=== PATIENT | female | born 1990 | race Caucasian/White ===

== ENCOUNTER → 2018-04-07 13:49 | Outpatient (CLI) | payer OTHER, SELFPAY ==
[2018-04-07 14:35] LABS: Add Manual Diff / Slide Review NO; Basophils Percent Auto 0.4 % (0-2); Eosinophils Percent Auto 0.6 % (2-4); Hematocrit 38.8 % (36-46); Hemoglobin 13.3 g/dL (12.0-16.0); Lymphocytes Percent Auto 16.2 % (25-40); Mean Corpuscular HGB Conc 34.2 % (30-36); Mean Corpuscular Hemoglobin 30.9 PG (26-34); Mean Corpuscular Volume 90.2 fL (80-100); Monocytes Percent Auto 6.2 % (3-14); Neutrophils Absolute Auto 10200 /uL (3000-5900); Neutrophils Percent Auto 76.6 % (50-75); Platelet Count 298 X10^3/uL (150-400); Red Cell Distribution Width 12.8 % (11.6-14.8); White Blood Cell Count 13.3 X10^3/uL (4.5-11.0)
[2018-04-07 15:22] LABS: Appearance Urine UA CLEAR; Bilirubin Urine UA NEGATIVE (NEGATIVE); Color Urine UA YELLOW; Glucose Urine UA NEGATIVE (Normal); Ketones Urine UA 2+ (NEGATIVE); Leukocyte Esterase Urine UA NEGATIVE (NEGATIVE); Nitrite Urine UA Negative (Negative); Occult Blood Urine UA NEGATIVE (Negative); Protein Urine UA NEGATIVE (Negative); Urobilinogen Urine UA 0.2 E.U./dL (0.2)
[2018-04-07 16:20] LABS: Hepatitis B Surface Antigen NEGATIVE s/c (NEGATIVE); Rubella Antibody IgG 4.1 IU/mL (>15)
[2018-04-07 16:30] LABS: HIV 1 and 2 Antibody NEGATIVE (NEGATIVE); Hep C Virus Ab w/Reflex Quant NEGATIVE s/c (NEGATIVE)
[2018-04-09 14:03] LABS: HSV 2 IGG AB < 0.90 index (< 0.90); HSV1IGG < 0.90 index (< 0.90)
[2018-04-14 12:24] LABS: Rapid Plasma Reagin NON-REACTIVE
== END ==
PROVIDERS: PCP Family Medicine Geriatric Medicine; Visit Provider Specialist
DX: Z34.01 Encounter for supervision of normal first pregnancy, first trimester (principal); Z3A.12 12 weeks gestation of pregnancy
CPT/HCPCS: 36415; 80055; 81003; 86695; 86696; 86703; 86787; 86803; 86850; 86900; 86901; 87077; 87086

== ENCOUNTER → 2018-06-09 12:04 | Outpatient (CLI) | payer OTHER, SELFPAY ==
--- NOTE | 2018-06-09 12:06 | DI.US.S_ITS ---
PROCEDURE: US OB >= 14 WEEKS FETUS INDICATIONS: 20 WEEK ANATOMICAL SURVEY OUTSIDE/PRIOR DATING DATA: Last menstrual period (LMP): 01/27/18. LMP-based estimated date of delivery (JOLANTA): 11/03/18. First dating scan (date and location): 04/07/18 Estimated date of delivery (JOLANTA) from first dating scan: 10/18/18. TECHNIQUE: Real-time scanning was performed of the fetus, with image documentation and biometric measurements. Endovaginal scanning: No COMPARISON: [facility], , OB >= 14 WEEKS FETUS, 04/07/2018, 12:42. FINDINGS: General: A single living intrauterine gestation is present. Presentation: Breech. Placenta: Placental position is anterior, without previa. Amniotic fluid index: 21.1 cm, normal range is 5-24 cm. heart rate: 147 beats per minute. Maternal cervical canal: 3.6 cm long. Normal lower limit is 2.5 cm. biometrics: Biparietal diameter: 20 weeks 2 days Head circumference: 20 weeks 6 days Abdominal circumference: 21 weeks 5 days Femur length: 20 weeks 0 days Estimated gestational age from initial scan: 21 weeks 2 days Composite gestational age from present scan: 20 weeks 5 days Estimated weight and percentile: 37 g; 27th percentile Measurement variability for biometric dating: +/- 7 days from 14 weeks to 15 weeks 6 days gestation, +/- 10 days from 16 weeks to 21 weeks 6 days gestation, +/- 2 weeks from 22 weeks to 27 weeks 6 days gestation, +/- 3 weeks for 28 weeks gestation or later. weight reference: 4500 g or EFW >90/95% is considered macrosomia or large for gestational age. EFW <10% is small for gestational age. EFW 5% or less is considered intra-uterine growth restriction. Anatomic survey: Neuro: Ventricles are non-dilated at less than 10 mm. Cisterna magna is normal at 3-11 mm. Cerebellum is normal in size and morphology. Nuchal skin fold: Normal at less than 6 mm between 14-21 weeks gestational age. Face: Nose and lips, facial profile are normal. Spine: No evidence for spina bifida. Heart: 4-chambered heart is present, with normal ventricular outflow tracts. Diaphragm: Diaphragm is intact. Stomach: Left-sided stomach is present. Kidneys: No hydronephrosis. Normal is less than 5 mm in 2nd trimester, less than 7 mm in 3rd trimester. Cord: 3-vessel cord has orthotopic insertion. Bladder: Normal in size. Extremities: All 4 extremities identified. IMPRESSION: 1. Normal interval growth. 2. Normal anatomic survey. Dictated by: Arnold SOARES Interpreted: Amauri Tinajero MD on 06/09/2018 at 13:48 Approved by: Rashad Carvajal M.D. on 06/10/2018 at 10:06
== END ==
PROVIDERS: PCP Family Medicine Geriatric Medicine; Visit Provider Specialist
DX: Z36.89 Encounter for other specified antenatal screening (principal); Z3A.20 20 weeks gestation of pregnancy
CPT/HCPCS: 76811

== ENCOUNTER → 2018-09-20 11:14 | Outpatient (CLI) | payer OTHER, SELFPAY ==
[2018-09-21 14:32] LABS: Strep Grp B PCR NEG for Grp B Strep
== END ==
PROVIDERS: PCP Family Medicine Geriatric Medicine
DX: Z34.03 Encounter for supervision of normal first pregnancy, third trimester (principal)
CPT/HCPCS: 87653

== ENCOUNTER 2018-10-21 07:53 | Observation (INO) | payer OTHER, SELFPAY ==
[2018-10-21 11:12] LABS: Appearance Urine UA CLEAR; Bilirubin Urine UA NEGATIVE (NEGATIVE); Color Urine UA YELLOW; Glucose Urine UA NEGATIVE (Negative); Ketones Urine UA TRACE (NEGATIVE); Leukocyte Esterase Urine UA NEGATIVE (NEGATIVE); Nitrite Urine UA NEGATIVE (Negative); Occult Blood Urine UA 1+ (Negative); Protein Urine UA NEGATIVE (Negative); Specific Gravity Urine UA 1.025 (1.000-1.035); Urobilinogen Urine UA 0.2 E.U./dL (0.2)
== END 2018-10-21 10:35 | disposition home or self-care (01) ==
PROVIDERS: Admitting Provider Obstetrics & Gynecology; PCP Family Medicine Geriatric Medicine; Visit Provider Obstetrics & Gynecology
DX: Z34.03 Encounter for supervision of normal first pregnancy, third trimester (principal); Z3A.40 40 weeks gestation of pregnancy
CPT/HCPCS: 59025; 81003; G0378; G0379

== ENCOUNTER 2018-10-22 03:57 | Inpatient (IN) | payer OTHER, SELFPAY ==
--- NOTE | 2018-10-22 05:44 | PM.OBPRVD ---
Events: Meconium Stained Fluid Delivery date: 10/22/18 Intrapartal events: Precipitous Labor < 3 hours Cervical ripening method: none Induction method: none Delivery monitor: external FHT and external uterine Route of delivery: (Precipitous) Episiotomy description: None L&D Laceration Description: Vaginal - 1st Degree Delivery repair: chromic Estimated blood loss (mL): 300 Anesthesia type: Local (For repair only) Complications: None Narrative: Patient presented to Labor and delivery at 1 cm dilated. She progressed quickly to complete dilation and had a precipitous delivery. At 5:06 a.m., a live female infant delivered spontaneously over an intact perineum. A nuchal cord x1 was reduced on the perineum. The remainder of the body was delivered without difficulty and was placed on mom's abdomen. The cord was double clamped and cut. Cord bloods were obtained. The placenta delivered intact with a 3 vessel cord at 5:12 a.m.. 10 mg of IM Pitocin were given. The fundus was massaged to firm. 10 cc of 1% lidocaine were injected. First-degree vaginal lacerations were repaired with 2 0 Chromic. A periurethral laceration was repaired with for 0 Chromic. Hemostasis was achieved. Estimated blood loss 300 cc. Apgars 9 at 1 min and 9 at 5 min. . Local analgesia only. Mom and infant stable to recovery. Plan for aftercare: To routine care
[2018-10-22 06:56] VITALS: BP 114/60
[2018-10-22] MEDS: DERMOPLAST SPRAY 20% 60 ML 1 SPRAY TOP (07:18)
[2018-10-22] MEDS: IBUPROFEN 600 MG TABLET PO ×2 (07:18→19:21)
[2018-10-22] MEDS: PRENATAL VIT,CALC/IRON/FOLIC 1 TABLET 1 TAB PO (08:34)
[2018-10-22] MEDS: DOCUSATE 250 MG CAPSULE PO (08:34)
[2018-10-22] MEDS: OXYCODONE/ACETAMINOPHEN 5/325 TABLET 1 TAB PO (08:34)
--- NOTE | 2018-10-22 10:37 | P.HPOB_ITS ---
OB HPI Date/Time Date of admission: 10/22/18 Date Patient Seen: 10/22/18 Time Patient Seen: 05:00 History of Present Condition Chief complaint: obs : 1 Para: 0 Estimated Date of Delivery: 10/18/18 Estimated Gestational Age (weeks): 40+4 Narrative: Sadie Parry is a 28 year old female 1 para 0 at 40 and 4 7th weeks gestation who presented in active labor. History of Present care: good care, initiated at week # (10), number of visits (12) and pounds weight gain (32) Dating criteria: LMP confirmed by 1st trimester US Ultrasounds: normal 1st trimester US and normal mid trimester US Obstetrical complications: none Medical complications: none Preadmission Labs Blood type: O (+) positive -: Antibody screen: negative, GBS status: negative, HBsAG: negative, HIV: negative, HSV 1: negative, HSV 2: negative and RPR/VDLR: negative -: Rubella: not immune and Varicella: immune HCT: 37.9 HCAB: negative PAP: Normal Urine: neg 1 hr GTT: 92 Prior (ies) History: N/A Evaluation Evaluation Baseline heart rate: 140 Variability: Moderate (11-25) monitor accelerations: Present monitor decelerations: Absent Contraction Frequency (minutes): 3 Uterine Contraction Intensity: Strong/Firm Category of Tracing: I Cervical dilation (cm): 10 Cervical effacement (%): 100 station: +3 Non-invasive Membranes Rupture Test: positive PFSH Medical History [place] teeth extracted (Acute) Social History Smoking Status: Never smoker Social History Smoking Status: Never smoker Meds Home Medications Medication Instructions Recorded Confirmed Type doxylamine succinate 25 mg tablet 25 mg PO BEDTIME PRN 04/07/18 04/07/18 History 1 tab PO DAILY 04/07/18 04/07/18 History vitamin,calcium,coagfwdp-mvty-acimx acid tablet pyridoxine (vitamin B6) 50 mg 50 mg PO DAILY 04/07/18 04/07/18 History capsule omeprazole 20 mg capsule,delayed 20 mg PO DAILY #30 cap 08/25/18 Rx release Allergies Allergy/AdvReac Type Severity Reaction Status Date / Time No Known Drug Allergies Allergy Unverified 04/07/18 14:03 Exam Vital Signs (past 8 hours): - 10/22/18 06:56 Blood Pressure 114/60 Narrative Exam Narrative: GENERALLY: PATIENT IS LYING IN BED, HOLDING INFANT LUNGS: CLEAR TO AUSCULTATION BILATERALLY CARDIOVASCULAR: REGULAR RATE AND RHYTHM EXTERNAL GENITALIA: UMBILICAL CORD PROTRUDING FROM THE VAGINA. EXTREMITIES: TRACE EDEMA, NEGATIVE HOMANS Assessment and Plan Assessment and Plan Assessment and Plan narrative: ASSESSMENT: 28-YEAR-OLD 1 PARA 0 AT 40 AND 4 7TH WEEKS GESTATION WITH PRECIPITOUS LABOR PLAN: EXPECTANT MANAGEMENT OF DELIVERY OF THE PLACENTA AND REPAIR OF VAGINAL LACERATION Time Spent with Patient Total time spent with greater than 50% in coordination of care (as documented) at patient's floor/unit and/or counseling patient:: Greater than 35 minutes
[2018-10-22 17:41] LABS: Urine N gonorrhoeae NOT DETECTED
[2018-10-22 17:49] LABS: Urine Chlamydia NOT DETECTED
[2018-10-22 19:21] VITALS: TEMP 37.4
[2018-10-23] MEDS: IBUPROFEN 600 MG TABLET PO ×2 (03:37→11:44)
[2018-10-23 05:08] LABS: Hematocrit 32.5 % (36-46); Hemoglobin 10.9 g/dL (12.0-16.0)
--- NOTE | 2018-10-23 08:23 | PM.OBDS.1 ---
Discharge Providers Date of admission: 10/22/18 03:57 Discharge Date: 10/23/18 Primary care physician: Violeta Cordoba MD Consults: 10/22/18 05:41 Consult to [employer] Operator Routine Comment: Discharge provider: Lisa Sweet MD Summary Date Patient Seen: 10/23/18 Time Patient Seen: 08:23 Procedures: Spontaneous vaginal delivery Precicipitous labor and delivery Vaginal laceration repair Hospital Course: Patient is a 28-year-old 1 para 1 who presented in active labor and progressed rapidly to complete dilation. She had a precipitous spontaneous vaginal delivery. She had first-degree vaginal lacerations that were repaired. Her post course was unremarkable. Peripartum Data Infant Delivery Method: Natural Vaginal Laceration description: Vaginal - 1st Degree Episiotomy description: None Procedures: Spontaneous vaginal delivery Vaginal laceration repair complications: none Status at Discharge Cognitive/behavioral status at discharge: oriented Functional status at discharge: independent ambulation Overall status at discharge: patient is progressing back to baseline Time Spent with Patient Total time spent providing and/or coordinating discharge services: Less than 30 minutes Objective Labs Result Diagrams: 10/23/18 04:48 Labs: Laboratory Results - last 24 hr 10/22/18 10/23/18 14:15 04:48 Hgb 10.9 L Hct 32.5 L Ur Chlamydia DNA (PCR) Not detected N gonorrhoeae DNA (PCR) Not detected Exam Vital Signs (past 8 hours): Generally: Patient is sitting up in bed, holding , no acute distress Fundus: Firm at U -2 Extremities: Trace edema, negative Homans Discharge Plan Discharge Plan Patient Disposition: Home Discharge comment: Call with fever, chills or bleeding vaginally more than a pad in an hour Ibuprofen 600mg every 6 hours as needed Discharge Med Rec/Prescriptions Prescriptions: Continued prenat.vits,dmitry,kbe-enec-iduzm [ Vitamin] tablet 1 tab PO DAILY RF: 0 Discontinued doxylamine succinate 25 mg tablet 25 mg PO BEDTIME PRNRF: 0 pyridoxine (vitamin B6) 50 mg capsule 50 mg PO DAILY RF: 0 omeprazole 20 mg capsule,delayed release(DR/EC) 20 mg PO DAILY Qty: 30 RF: 1 Follow up/Referrals: Noel Hitchcock MD [Physician] - 6 Weeks Provider Discharge Instructions Diet: Regular Activity: No intercourse Skin/Wound/Dressing Care Report to your healthcare provider any signs of infection, such as:: chills, fever, increased pain, unusual drainage and unusual redness Visit Report/Discharge Packet Instructions: DI for Labor and Delivery, Vaginal Discharge Data Primary Care Provider: Violeta Cordoba Attending Provider: Lisa Sweet Admit Date/Time: 10/22/18 03:57
[2018-10-23] MEDS: PRENATAL VIT,CALC/IRON/FOLIC 1 TABLET 1 TAB PO (09:45)
[2018-10-23] MEDS: DOCUSATE 250 MG CAPSULE PO (09:45)
[2018-10-23 10:28] VITALS: BP 112/76; PULSE 84; RESP 16; TEMP 36.9
[2018-10-23] MEDS: MEASLES,MUMPS,RUBELLA VACC/PF 0.5 ML VIAL SUBCUT (11:44)
== END 2018-10-23 11:59 | disposition home or self-care (01) | DRG 807 ==
PROVIDERS: Admitting Provider Obstetrics & Gynecology; PCP Family Medicine Geriatric Medicine; Visit Provider Obstetrics & Gynecology
DX: O69.81X0 Labor and delivery complicated by cord around neck, without compression, not applicable or unspecified (principal); Z37.0 Single live birth; O77.0 Labor and delivery complicated by meconium in amniotic fluid; Z3A.40 40 weeks gestation of pregnancy; O70.0 First degree perineal laceration during delivery; O62.3 Precipitate labor
CPT/HCPCS: 36415; 59050; 59400; 59409; 84112; 85014; 85018; 87491; 87591; G0379

== ENCOUNTER → 2021-05-05 17:08 | Outpatient (CLI) | payer OTHER, SELFPAY ==
[2021-05-05 17:42] LABS: Appearance Urine UA CLEAR; Bilirubin Urine UA NEGATIVE (NEGATIVE); Color Urine UA YELLOW; Glucose Urine UA NEGATIVE (Negative); Ketones Urine UA NEGATIVE (NEGATIVE); Leukocyte Esterase Urine UA NEGATIVE (NEGATIVE); Nitrite Urine UA NEGATIVE (Negative); Occult Blood Urine UA TRACE-LYSED (Negative); Protein Urine UA NEGATIVE (Negative); Urobilinogen Urine UA 0.2 E.U./dL (0.2)
[2021-05-05 18:13] LABS: Add Manual Diff / Slide Review NO; Basophils Absolute Auto 100 /uL (0-100); Basophils Percent Auto 0.6 % (0-2); Eosinophils Absolute Auto 300 /uL (0-450); Hematocrit 37.7 % (36-46); Hemoglobin 12.9 g/dL (12.0-16.0); Lymphocytes Absolute Auto 2400 /uL (1100-4500); Lymphocytes Percent Auto 16.3 % (25-40); Mean Corpuscular HGB Conc 34.2 % (30-36); Mean Corpuscular Hemoglobin 30.5 PG (26-34); Mean Corpuscular Volume 89.2 fL (80-100); Monocytes Absolute Auto 900 /uL (0-900); Monocytes Percent Auto 6.2 % (3-14); Neutrophils Absolute Auto 11000 /uL (1500-7000); Neutrophils Percent Auto 74.9 % (50-75); Platelet Count 288 X10^3/uL (150-400); Red Blood Cell Count 4.22 X10^6/uL (4.0-5.2); Red Cell Distribution Width 12.8 % (11.6-14.8); White Blood Cell Count 14.7 X10^3/uL (4.5-11.0)
[2021-05-05 19:12] LABS: Hepatitis B Surface Antigen NEGATIVE s/c (NEGATIVE)
[2021-05-05 19:30] LABS: HIV 1 & 2 Ab/Ag 4th Gen Combo NEGATIVE (NEGATIVE); Hep C Virus Ab w/Reflex Quant NEGATIVE s/c (NEGATIVE)
[2021-05-06 06:38] LABS: RPR Screen Non Reactive (Non Reactive)
[2021-05-07 15:26] LABS: Varicella IgG Antibody 1682 index (Immune >165)
[2021-05-07 18:26] LABS: AFP, Serum 68.9 ng/mL (.); Estriol, Free 2.46 ng/mL (.); Inhibin A, Dimeric 362.92 pg/mL (.); Inhibin A, MoM 1.95 (.); Maternal Ethnicity Caucasian (.); Maternal Weight 157 lbs (.); Number of Fetuses No (.); OSBR Risk 1 IN 6704 (.); Results Report (.); Test Results *Screen Negative* (.); hCG, MoM 1.36 (.); hCG, Serum 32583 mIU/mL (.)
== END ==
PROVIDERS: PCP Family Medicine Geriatric Medicine; Referring Provider Obstetrics & Gynecology; Visit Provider Obstetrics & Gynecology
DX: Z34.82 Encounter for supervision of other normal pregnancy, second trimester (principal); Z3A.20 20 weeks gestation of pregnancy
CPT/HCPCS: 36415; 80055; 81003; 82105; 82677; 84702; 86336; 86787; 86803; 86850; 86900; 86901; 87077; 87086; 87186; 87389

== ENCOUNTER → 2021-07-08 18:06 | Outpatient (CLI) | payer OTHER, SELFPAY ==
--- NOTE | 2021-07-08 17:21 | DIAB.GDA ---
Initial Gestational Diabetes Assessment Name: Sadie Parry Date: 07/08/21 Time: 5-6p Dx: Gestational Diabetes Provider: Kee JOLANTA: 09/20/20 Weeks: 29 Today's appointment was completed virtually with [employer] platform. Sadie has consented to this virtual appointment. Sadie presents for initial GDM visit. No labs available for review at this time, but reports OGTT was slightly elevated. Endorses FH of T2Dm with father and paternal aunt. No GDM with previous (baby about 7#). She is having a boy! Since dx of GDM, she endorses cutting out all carbohydrates. Has been eating mostly eggs, pickles, and cheese with vegetables. States she feels tired and hungry on this diet. Seems she has misunderstood the handouts provided her from provider's office. We reviewed these handouts today for clarification on diet and blood sugar goals. States she is worried that baby will be born with diabetes. Reports being worried about delivery and potential for . Anthropometrics: Ht: 4 Wt: 162# (last provider visit) Prepregnancy wt: 150# Physical Activity: No program currently. Works at [employer] and is active there, but no exercise program in place. Off from work three days per week. Self-Monitoring Blood Glucose: No elevations. Low readings after meals due to carb omission. Date Pre Post 2hr Pre Post 2hr Pre Post 2hr HS 07/05 77 99 77 63 07/06 80 115 91 76 07/07 83 82 93 88 07/08 78 91 66 Diabetes Medications: none Pertinent Labs: None available in EMR Intervention: This participant was very receptive. Provided appropriate educational handouts. Discussed the following topics: GDM pathophysiology and impact of hyperglycemia on mom and baby-- clarified baby's risk for T2Dm later in life as opposed to at . Risk for T2DM for mom and baby in the future Ways to reduce risk T2DM with lifestyle change Plate Method, meal timing, carb counting, pairing macronutrients and spreading out CHO for better BG management. importance of moderate carb intake during . Blood glucose goals (FBG: <95 and 2 hour <120 mg/dL) Impact of macronutrients on blood glucose Recommended servings for carbohydrates at meals and snacks Brainstormed appropriate meal plan based on her food preferences Role of physical activity and following provider guidelines for safety Goals: Add some carbs, as discussed Blood sugar goals of FBG: <95 and 2 hr: <120 try to add 15-30 min activity 3 days pe rweek or more try to eat q 3-4 hours Follow-up: ESTELA ROBERTS follow-up in one week over the phone to check Bg. In person visit 07/22. Judie Dumont RDN, ALEJANDRA Certified Diabetes Care and Color Maker Formulator T: [phone] F: [phone] [email or web address] Thank you for this referral
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
== END ==
LOC: DIET 18:06
PROVIDERS: Referring Provider Obstetrics & Gynecology; Visit Provider Obstetrics & Gynecology
DX: O24.419 Gestational diabetes mellitus in pregnancy, unspecified control (principal); Z3A.29 29 weeks gestation of pregnancy; Z71.3 Dietary counseling and surveillance
CPT/HCPCS: G0108

== ENCOUNTER → 2021-07-22 11:54 | Outpatient (CLI) | payer OTHER, SELFPAY ==
--- NOTE | 2021-07-22 17:20 | DIAB.GDFU ---
Addendum entered by Judie Dumont 07/22/21 17:38: Called provider's MA and updated her on FBG. Original Note: Follow-up Gestational Diabetes Assessment Name: Sadie Parry Date: 07/22/21 Time: 12-1p Dx: Gestational Diabetes JOLANTA: 09/20/20 Weeks: 31 Sadie presents for GDM follow-up. Reports most meals are 15-45g of carbs and most pc readings indicate this with BG within goal. some meals even seem low in carb for . 3 meals and one snack per day, mostly due to her work schedule. Some meals >4 hrs between. FBG continue to see elevations a few times per week indicating potential for medication management, if provider agrees. She endorses poor sleep many nights per week with her daughter sleeping in bed with them (her father currently staying with them in daughter's room). Sadie was suppose to see provider today, but rescheduled based on transportation and provider running late today. Asked her to contact OB office about elevations. Sadie endorses increased stress with family wanting her to be vaccinated, dad living with her, limited sleep, work very busy and short staffed, ferry issues impacting transportation, and financial concerns. Anthropometrics: Ht: 4'10 Wt: 163.4# (today) Prepregnancy wt: 150# Wt changes: +13.4# Prepregnancy BMI: 31 Recommended wt gain per BMI: 11-20# Physical Activity: No program. States she is too busy with work, appts, babysitting, and family. States she maybe able to walk starting in August after babysitting ends. Then anticipates weather as a barrier. Denies any places she can walk inside. Self-Monitoring Blood Glucose: 10/06 elevated fastings this week. Week prior also had elevations of 98-99 mg/dL. After meal readings mostly in range. Elevation after breakfast today from higher carb intake (half burrito, apple, two sm donuts). Date Pre Post Pre Post Pre Post HS 07/16 82 82 77 94 07/17 107 83 91 07/18 93 81 94 07/19 81 84 119 114 07/20 101 85 112 07/21 86 75 126 07/22 98 127 Diabetes Medications: None Pertinent Labs: None available in EMR Nutrition Rx: Carbohydrates: Meal: 45-60g lunch and dinner; 30g breakfast Snack: 15-30g Nutrition Diagnosis: Altered nutrition related lab value r/t GDM dx aeb recent OGTT per provider referral Inconsistent CHO intake r/t nutrition knowledge deficit aeb diet recall Physical inactivity r/t busy schedule aeb pt report Intervention: This participant was very receptive. Provided appropriate educational handouts. Discussed the following topics: Recent blood sugar results and impact of food and hormones Review of macronutrient recommendations during Potential for medication management Impact of sleep on hormones and BG Physical activity plan Goals: Add some carbs, as discussed- met Blood sugar goals of FBG: <95 and 2 hr: <120- cont try to add 15-30 min activity 3 days pe rweek or more- not met try to eat q 3-4 hours- in progress Aim for 30g CHO at breakfast and 45g at lunch and dinner- new Discuss FBG with provider- new Celestino try to add walking- new Follow-up: ESTELA ROBERTS follow-up in 2 weeks Judie Dumont RDN, ALEJANDRA Certified Diabetes Care and Relief Man T: [phone] F: [phone] [email or web address] Thank you for this referral
--- NOTE | 2021-08-07 13:21 | DIAB.GDFU ---
Follow-up Gestational Diabetes Assessment Name: Sadie Parry Date: 08/07/21 Time: 1230-115p Dx: Gestational Diabetes JOLANTA: 09/20/20 Weeks: 33 Sadie presents for GDM follow-up. Plans to see provider this afternoon for follow-up. Continues with inconsistent FBG, with elevations 1-2 x per week sometimes above 100 mg/dL. States she just returned from vacation today. Endorses high carb intake during trip for some meals, which is notable in her elevated pc readings. Reports late high carb meals on vacation, which likely impacted FBG. States she feels she knows what to eat, but she is having difficulty sticking to it especially on vacation of course. Has overall been avoiding sugared beverages. Prior to trip endorses moderate carb intake as recommended. seems motivated to get back on track now that she is home. States her father took metformin and had a lot of GI upset. She has questions regarding T2DM medications in general. Also states her aunt uses apple cider vinegar to help with BG. Endorses increased heartburn during trip. Does not have PCP established. Endorses good with last daughter x 1.5 years. Physical Activity: Improved with some walking during vacation and efforts to walk more prior to trip around housing complex. Open to exercise ideas . Self-Monitoring Blood Glucose: 08/08 elevated FBG. 1/5 elevated pc breakfast. 2/4 elevated pc lunch. 1/4 elevated pc dinner. Date Pre Post Pre Post Pre Post HS 08/01 92 93 83 105 1/1 80 124 124 1/2 84 88 111 1/3 79 113 1/4 78 109 142 1/5 100 109 130 120 08/07/21 103 Diabetes Medications: None Pertinent Labs: None available in EMR Intervention: This participant was very receptive. Provided appropriate educational handouts. Discussed the following topics: Recent blood sugar results and impact of food and hormones Review of macronutrient recommendations during Benefits, resources, and nutrition for Answered her questions regarding metformin and apple cider vinegar Heartburn and foods to avoid recommendations for nutrition and physical activity recommendations for T2DM risk reduction OGTT at 6-12 weeks Possibility of checking blood sugars twice per week (goal: fasting <100 mg/dL and 2 hour pc <140 mg/dL) until 6 week check-up HgA1c q 1-3 years. Goals: Aim for 30g CHO at breakfast and 45g at lunch and dinner- met Discuss FBG with provider- met Celestino try to add walking- met Follow CHO recs as discussed- new Establish PCP after baby comes- new Get HgA1c 6-12 months and q 1-3 years to reduce T2 risk- new Follow-up: ESTELA ROBERTS follow-up in prn. Encouraged her to call with any questions, concerns, or follow-up needs. Plans to see OB today. I am happy to follow-up with Sadie gerardo. Judie Dumont RDN, [facility] Certified Diabetes Care and Physical Education Department Chair T: [phone] F: [phone] [email or web address] Thank you for this referral
== END ==
PROVIDERS: Referring Provider Obstetrics & Gynecology; Visit Provider Obstetrics & Gynecology
DX: O24.419 Gestational diabetes mellitus in pregnancy, unspecified control (principal); Z3A.31 31 weeks gestation of pregnancy
CPT/HCPCS: 97803

== ENCOUNTER → 2021-08-07 12:31 | Outpatient (CLI) | payer OTHER, SELFPAY | PROVIDERS: Referring Provider Obstetrics & Gynecology; Visit Provider Obstetrics & Gynecology | DX: O24.419 Gestational diabetes mellitus in pregnancy, unspecified control (principal); Z71.3 Dietary counseling and surveillance | CPT/HCPCS: G0108 ==

== ENCOUNTER → 2021-09-02 16:21 | Outpatient (CLI) | payer OTHER, SELFPAY ==
[2021-09-03 12:33] LABS: Strep Grp B PCR NEG for Grp B Strep
== END ==
PROVIDERS: PCP Obstetrics & Gynecology; Visit Provider Obstetrics & Gynecology
DX: Z34.83 Encounter for supervision of other normal pregnancy, third trimester; Z36.85 Encounter for antenatal screening for Streptococcus B; Z3A.37 37 weeks gestation of pregnancy
CPT/HCPCS: 87653

== ENCOUNTER 2021-09-09 14:04 | Outpatient (CLI) | payer OTHER, SELFPAY ==
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
== END 2021-09-09 16:00 | disposition home or self-care (01) ==
LOC: LABOR 14:43 → OB 09-10 09:50
PROVIDERS: PCP Obstetrics & Gynecology; Referring Provider Specialist; Visit Provider Specialist
DX: O47.1 False labor at or after 37 completed weeks of gestation (principal); Z3A.38 38 weeks gestation of pregnancy
CPT/HCPCS: 59025; G0378; G0379

== ENCOUNTER 2021-09-10 03:21 | Inpatient (IN) | payer OTHER, SELFPAY ==
[2021-09-10 04:05] LABS: COVID19 -Nasal RAPID POSITIVE (Negative)
[2021-09-10 04:53] LABS: Add Manual Diff / Slide Review NO; Basophils Absolute Auto 100 /uL (0-100); Basophils Percent Auto 0.7 % (0-2); Eosinophils Absolute Auto 100 /uL (0-450); Eosinophils Percent Auto 0.8 % (2-4); Hematocrit 38.6 % (36-46); Hemoglobin 13.1 g/dL (12.0-16.0); Lymphocytes Absolute Auto 1800 /uL (1100-4500); Lymphocytes Percent Auto 12.7 % (25-40); Mean Corpuscular Volume 82.5 fL (80-100); Monocytes Absolute Auto 600 /uL (0-900); Monocytes Percent Auto 4.1 % (3-14); Neutrophils Absolute Auto 11700 /uL (1500-7000); Neutrophils Percent Auto 81.7 % (50-75); Platelet Count 277 X10^3/uL (150-400); Red Blood Cell Count 4.68 X10^6/uL (4.0-5.2); Red Cell Distribution Width 14.1 % (11.6-14.8); White Blood Cell Count 14.3 X10^3/uL (4.5-11.0)
[2021-09-10] MEDS: FENT 2MCG/ML BUPIV 0.125% EPI 200 MCG/100 ML PLAST..BAG 10 MCG EPIDURAL (05:30)
[2021-09-10 06:49] VITALS: BP 123/70
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
--- NOTE | 2021-09-10 09:41 | PM.OBPRVD ---
Events: Gestational Diabetes Labor & Delivery Delivery date: 09/10/21 Intrapartal Events: None Cervical ripening method: none Induction method: none Delivery monitor: external FHT Route of delivery: Episiotomy description: None L&D Laceration Description: None Estimated blood loss (mL): 50 Anesthesia Type: Epidural Complications: None Narrative: PROCEDURE: at 38w4d presented in active labor with SROM and clear fluid, and was admitted to Labor and Delivery. The patient progressed through the 1st stage over 7 hours. Pain was controlled with an epidural. The patient progressed through the 2nd stage over 1 hour and delivered a viable male with APGARs 8/9 at 9:06am via without complications. The cord was cut and clamped after it stopped pulsating. The perineum and vagina were inspected with no lacerations. The pt tolerated delivery well. PREPROCEDURE DIAGNOSIS: Intrauterine at 38w4d GBS negative RH positive GDMA1 POSTPROCEDURE DIAGNOSIS: Intrauterine at 38w4d, delivered Same as preprocedure Baby 1: Infant gender: Male Presentation: vertex Position: Left Occiput Anterior Placenta delivery description: Spontaneous Cord Vessel Description: 3 Vessels score (1 min): 8 score (5 min): 9 weight: 7 lb 14 oz Plan for aftercare: Routine care
[2021-09-10] MEDS: OXYTOCIN PREMIX 30 UNIT/500 ML PLAST..BAG 100 UNIT IV (09:43)
[2021-09-10] MEDS: IBUPROFEN 600 MG TABLET PO (15:23)
[2021-09-10] MEDS: ACETAMINOPHEN 325 MG TABLET 650 MG PO (15:23)
[2021-09-11] MEDS: IBUPROFEN 600 MG TABLET PO ×2 (01:22→07:59)
[2021-09-11] MEDS: ACETAMINOPHEN 325 MG TABLET 650 MG PO ×2 (01:22→08:00)
[2021-09-11] MEDS: DERMOPLAST SPRAY 20% 60 ML 1 SPRAY TOP (08:00)
[2021-09-11] MEDS: PRENATAL VIT,CALC/IRON/FOLIC 1 TABLET 1 TAB PO (08:03)
[2021-09-11] MEDS: DOCUSATE 100 MG CAPSULE PO (08:03)
[2021-09-11 11:21] VITALS: BP 114/63; PULSE 81; RESP 16; TEMP 36.8
--- NOTE | 2021-09-11 11:21 | PM.OBDS.1 ---
Discharge Providers Provider Date of admission: 09/10/21 03:21 Discharge Date: 09/11/21 Primary care physician: Lisa Sweet MD Consults: 09/11/21 09:34 Consult to Expeditionary Fighting Vehicle Crewman Routine Comment: Discharge provider: Eliza Sims MD Summary Hospital Course Date Patient Seen: 09/11/21 Time Patient Seen: 11:21 Diagnoses: 38w4d gestation GBS negative Rh positive GDMA1 Hospital Course: The pt presented in active labor with SROM. She progressed to complete and had a of a viable baby boy on 09/10/21. There were no lacerations. The delivery was without complications. , there were also no complications. At the time of discharge she was voiding, ambulating, and passing flatus without difficulty. Her lochia was decreasing appropriately. She was with good latch. Her pain was well controlled. She will f/u in [address] Sweet, her primary OB. Her is considering vasectomy for contraception. Discussed pelvic rest for the next 6 weeks. Peripartum Data Infant Delivery Method: Natural Vaginal Laceration Description: None Episiotomy description: None Procedures: Spontaneous vaginal delivery complications: none 1: Gender: Male Disposition of : home Discharge Diagnosis (1) Spontaneous vaginal delivery: Status: Acute Status at Discharge Cognitive/behavioral status at discharge: oriented Functional status at discharge: independent ambulation Overall status at discharge: patient is progressing back to baseline Time Spent with Patient Time attestation: Total time spent providing and/or coordinating discharge services: Objective Labs Result Diagrams: 09/10/21 04:35 Exam Narrative Exam Narrative: Gen: NAD, sitting comfortably in bed, appears well CV: RRR, no murmurs Resp: clear to auscultation bilaterally Abd: soft, appropriately tender, fundus firm and below the umbilicus, nondistended Ext: no edema Discharge Plan Discharge Plan Patient Disposition: Home Discharge orders & Medications Prescriptions: New acetaminophen 325 mg Tablet 650 mg PO Q6HR PRN (Reason: Pain, Mild (1-3)) Qty: 30 0RF docusate sodium 100 mg Capsule 100 mg PO DAILY Qty: 30 0RF ibuprofen 600 mg Tablet 600 mg PO Q6HR PRN (Reason: Pain, Mild (1-3)) Qty: 30 0RF Continued prenat.vits,dmitry,yfw-xioy-vwjyz Tablet 1 tab PO DAILY Qty: 90 3RF Rx Instructions: May substitute any brand or type covered by patient's insurance as long as it has 800 mcg of folic acid. Discontinued (DME) blood-glucose meter Misc See Rx Instructions .MEDSUPPLY Qty: 1 0RF Rx Instructions: Use to check blood sugar 4 times daily as directed and record on log sheet. (DME) lancets-blood glucose strips 30 gauge combo pack See Rx Instructions .MEDSUPPLY Qty: 100 2RF Rx Instructions: Use to check blood sugar 4 times daily as directed and record on log sheet. Follow up/Referrals: Lisa Sweet MD [Primary Care Provider] - 6 Weeks Diet/Activity/Treatments Diet: Diet as Tolerated and Regular Skin/Wound/Dressing Care Report to your healthcare provider any signs of infection, such as:: chills, fever, increased pain and unusual drainage Visit Report/Discharge Packet Instructions: DI for Labor and Delivery, Vaginal Visit Report Forms: Patient Portal/API, Stroke Signs & Symptoms Discharge Data Primary Care Provider: Lisa Sweet
== END 2021-09-11 12:25 | disposition home or self-care (01) | DRG 805 ==
PROVIDERS: Admitting Provider Family Medicine; PCP Obstetrics & Gynecology; Referring Provider Family Medicine; Visit Provider Family Medicine
DX: O42.02 Full-term premature rupture of membranes, onset of labor within 24 hours of rupture (principal); U07.1 COVID-19; Z37.0 Single live birth; O98.52 Other viral diseases complicating childbirth; O47.1 False labor at or after 37 completed weeks of gestation; O24.429 Gestational diabetes mellitus in childbirth, unspecified control; Z3A.38 38 weeks gestation of pregnancy
CPT/HCPCS: 01967; 36415; 59025; 59050; 59400; 59409; 85025; 86850; 86900; 86901; 87635; C9803; G0379; J2590

== ENCOUNTER → 2023-11-05 11:59 | Outpatient (CLI) | payer OTHER, MEDICAID, SELFPAY ==
[2023-11-05 15:10] LABS: Urine N gonorrhoeae NOT DETECTED
[2023-11-05 15:14] LABS: Urine Chlamydia NOT DETECTED
== END ==
PROVIDERS: Visit Provider Specialist
DX: Z11.3 Encounter for screening for infections with a predominantly sexual mode of transmission (principal); Z34.82 Encounter for supervision of other normal pregnancy, second trimester; Z3A.20 20 weeks gestation of pregnancy
CPT/HCPCS: 87491; 87591

== ENCOUNTER → 2023-11-05 12:23 | Outpatient (CLI) | payer OTHER, MEDICAID, SELFPAY ==
[2023-11-05 13:40] LABS: Add Manual Diff / Slide Review NO; Basophils Absolute Auto 0 /uL (0-100); Basophils Percent Auto 0.4 % (0-2); Eosinophils Absolute Auto 100 /uL (0-450); Eosinophils Percent Auto 0.8 % (2-4); Hematocrit 38.5 % (36-46); Hemoglobin 13.1 g/dL (12.0-16.0); Lymphocytes Absolute Auto 2000 /uL (1100-4500); Lymphocytes Percent Auto 17.5 % (25-40); Mean Corpuscular Hemoglobin 30.1 PG (26-34); Mean Corpuscular Volume 88.4 fL (80-100); Monocytes Absolute Auto 500 /uL (0-900); Monocytes Percent Auto 4.2 % (3-14); Neutrophils Absolute Auto 8800 /uL (1500-7000); Neutrophils Percent Auto 77.1 % (50-75); Platelet Count 271 X10^3/uL (150-400); Red Blood Cell Count 4.36 X10^6/uL (4.0-5.2); Red Cell Distribution Width 12.8 % (11.6-14.8); White Blood Cell Count 11.4 X10^3/uL (4.5-11.0)
[2023-11-05 13:50] LABS: Hemoglobin A1C% w Est Avg Glu 4.8 % (4.0-6.0)
[2023-11-05 14:32] LABS: Urine Chlamydia NOT DETECTED; Urine N gonorrhoeae NOT DETECTED
[2023-11-06 04:36] LABS: RPR Screen Non Reactive (Non Reactive)
[2023-11-06 08:46] LABS: Varicella IgG Antibody 1507 index (Immune >165)
[2023-11-08 16:33] LABS: Hepatitis B Surface Antigen NEGATIVE s/c (NEGATIVE); Rubella Antibody IgG 29.9 IU/mL (>15)
[2023-11-08 16:41] LABS: HIV 1 & 2 Ab/Ag 4th Gen Combo NEGATIVE (NEGATIVE); Hep C Virus Ab w/Reflex Quant NEGATIVE s/c (NEGATIVE)
[2023-11-08 16:56] LABS: AFP, Serum 60.8 ng/mL (.); Estriol, Free 1.74 ng/mL (.); Inhibin A, Dimeric 276.18 pg/mL (.); Maternal Ethnicity Caucasian (.); Maternal Weight 153 lbs (.); Number of Fetuses No (.); OSBR Risk 1 IN 10000 (.); Results Report (.); Test Results *Screen Negative* (.); hCG, Serum 17309 mIU/mL (.)
== END ==
PROVIDERS: Obstetrics & Gynecology; Referring Provider Specialist; Visit Provider Specialist
DX: Z86.32 Personal history of gestational diabetes; O09.292 Supervision of pregnancy with other poor reproductive or obstetric history, second trimester; Z11.3 Encounter for screening for infections with a predominantly sexual mode of transmission; Z3A.20 20 weeks gestation of pregnancy
CPT/HCPCS: 36415; 80055; 82105; 82677; 83036; 84702; 86336; 86787; 86803; 86850; 86900; 86901; 87077; 87086; 87147; 87389; 87491; 87591

== ENCOUNTER 2024-03-17 10:18 | Observation (INO) | payer OTHER, MEDICAID, SELFPAY | END 2024-03-17 11:28 | disposition home or self-care (01) | PROVIDERS: Admitting Provider Specialist; Referring Provider Specialist; Visit Provider Specialist | DX: O47.1 False labor at or after 37 completed weeks of gestation (principal); Z3A.39 39 weeks gestation of pregnancy | CPT/HCPCS: 59025; G0378; G0379 ==

== ENCOUNTER 2024-03-19 03:57 | Inpatient (IN) | payer OTHER, MEDICAID, SELFPAY ==
[2024-03-19 04:55] VITALS: BP 122/79
[2024-03-19] MEDS: LACTATED RINGERS 1,000 ML 100 ML IV (04:59)
[2024-03-19 05:11] LABS: Add Manual Diff / Slide Review NO; Basophils Absolute Auto 100 /uL (0-100); Basophils Percent Auto 0.8 % (0-2); Eosinophils Absolute Auto 100 /uL (0-450); Eosinophils Percent Auto 0.7 % (2-4); Hematocrit 36.2 % (36-46); Hemoglobin 12.3 g/dL (12.0-16.0); Lymphocytes Absolute Auto 1400 /uL (1100-4500); Lymphocytes Percent Auto 11.8 % (25-40); Mean Corpuscular HGB Conc 33.9 % (30-36); Mean Corpuscular Hemoglobin 28.5 PG (26-34); Mean Corpuscular Volume 84.1 fL (80-100); Monocytes Absolute Auto 600 /uL (0-900); Monocytes Percent Auto 5.2 % (3-14); Neutrophils Absolute Auto 9400 /uL (1500-7000); Neutrophils Percent Auto 81.5 % (50-75); Platelet Count 267 X10^3/uL (150-400); Red Cell Distribution Width 14.6 % (11.6-14.8); White Blood Cell Count 11.6 X10^3/uL (4.5-11.0)
[2024-03-19] MEDS: ONDANSETRON 4 MG/2 ML INJ IV (05:18)
[2024-03-19] MEDS: AMPICILLIN 2,000 MG in SODIUM CHLORIDE 0.9% 100 ML 200 MG IV (05:23)
--- NOTE | 2024-03-19 06:58 | PM.AN.REGBLK ---
Regional Block Pre-procedure Procedure: Continuous Lumbar Epidural for L&D Attending OB provider: Deepa Robins PMH/ROS narrative: ROS negative PSH/Anesthesia history narrative: , Epidural with previous delivery, worked great Exam narrative: Mall II, healthy. No asthma, DM or HTN. ASA Class: II Labs: Hct 36.2 % (36-46) 03/19/24 04:50 Plt Count 267 X10^3/uL (150-400) 03/19/24 04:50 Medications: Current Medications Generic Name Dose Route Start Last Admin Trade Name Freq PRN Reason Stop Dose Admin Carboprost Tromethamine 250 mcg 03/19/24 04:33 Carboprost 250 Mcg/Ml Ampul IM Q90M PRN Bleeding Fentanyl 50 mcg 03/19/24 04:33 Fentanyl 100 Mcg/2 Ml Inj IV Q1H PRN Pain, Moderate (4-6) Lactated Ringer's 1,000 mls @ 100 mls/hr 03/19/24 04:45 03/19/24 04:59 Lactated Ringers IV 03/19/24 14:44 100 mls/hr CONT HALLIE Administration Oxytocin/Lactated Ringer's 30 unit in 500 mls @ 200 mls/hr 03/19/24 04:33 Oxytocin Premix IV CONT PRN Bleeding Protocol Tranexamic Acid 1,000 mg/ 100 mls @ 600 mls/hr 03/19/24 04:33 Sodium Chloride IV NOW PRN Bleeding Lidocaine HCl 20 ml 03/19/24 04:33 Lidocaine 1% 20 Ml INJ INTRA-OP PRN Post Delivery Methylergonovine Maleate 0.2 mg 03/19/24 04:33 Methylergonovine 0.2 Mg Tablet PO Q6HR PRN Heavy Bleeding Methylergonovine Maleate 0.2 mg 03/19/24 04:33 Methylergonovine 0.2 Mg/Ml Vial IM NOW PRN Bleeding Mineral Oil 30 ml 03/19/24 04:33 Mineral Oil 30 Ml Udc TOP PRN PRN Version Misoprostol 800 mcg 03/19/24 04:33 Misoprostol 200 Mcg Tablet TN NOW PRN Bleeding Misoprostol 400 mcg 03/19/24 04:33 Misoprostol 200 Mcg Tablet SL NOW PRN Bleeding Naloxone HCl 0.2 mg 03/19/24 04:33 Naloxone 0.4 Mg/Ml Vial IV Q2MIN PRN Opiate Reversal Ondansetron HCl 4 mg 03/19/24 04:33 03/19/24 05:18 Ondansetron 4 Mg/2 Ml Inj IV 4 mg Q4HR PRN Administration Nausea And Vomiting Oxytocin 10 unit 03/19/24 04:33 Oxytocin 10 Unit/Ml Vial IM NOW PRN Bleeding Allergies: Allergies Allergy/AdvReac Type Severity Reaction Status Date / Time No Known Drug Allergies Allergy Unverified 03/13/24 13:39 Procedure Insertion date: 03/19/24 Insertion time: 06:32 Prep/Local: 1% lidocaine Interspace: L4-5 Patient position: sitting Needle: 17 gauge Tuohy Loss of resistance with: saline JUWAN at (cm): 8 Catheter placed at SKIN (cm): 15 Catheter in SPACE (cm): 7 Sensory level: T10 Insertion: No CSF, No Blood, No Paresthesia with insertion, No Paresthesia with injection and No Test dose reaction Initial Medications TEST DOSE time: 06:38 BOLUS DOSE time: 06:50 BOLUS DOSE (mL): 5 BOLUS DOSE med: 0.125% bupivacaine with fentanyl 10 mcg/mL Infusion Initial rate (mL/hr): 8 Post-procedure Anesthesia date START: 03/19/24 Anesthesia time START: 06:32 Anesthesia date END: 03/19/24 Anesthesia time END: 11:10 Post-procedure Anesthesia Assessment: Yes CV function: HR/BP stable, Yes Resp function: RR/sat/airway adequate, Yes Post-op hydration adequate, Yes Pain control adequate, Yes Nausea & vomiting absent, Yes Temperature > 36 C, Yes Mental status appropriate and Yes Anesthesia complications
[2024-03-19] MEDS: FENT 2MCG/ML BUPIV 0.125% EPI 200 MCG/100 ML PLAST..BAG 8 MCG EPIDURAL (07:00)
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
[2024-03-19 07:28] VITALS: BP 114/70; PULSE 96; TEMP 36.4
[2024-03-19] MEDS: AMPICILLIN 1,000 MG in SODIUM CHLORIDE 0.9% 100 ML 200 MG IV (09:04)
--- NOTE | 2024-03-19 09:21 | PM.OBPNLAB ---
Date/Time Date Patient Seen: 03/19/24 Time Patient Seen: 09:21 Pain Control Pain control: epidural Pelvic Exam Dilation (cm): 8 Effacement (%): 80 station: -2 Amniotic membrane status: Ruptured (AROM moderate meconium) Contractions Contractions on admission: regular Monitor mode: External Contraction frequency (min): 3 Contraction pattern: Regular Contraction intensity: Strong/Firm Status status: Category ll Heart Rate Baseline: 140 Monitor Accelerations: Present Monitor Decelerations: Variable Monitor Variability: Moderate Assessment and Plan Assessment: active labor Plan: continuous present management
--- NOTE | 2024-03-19 11:25 | PM.OBPRVD ---
Labor & Delivery Delivery date: 03/19/24 Cervical ripening method: none Induction method: none Delivery monitor: external FHT and external uterine Route of delivery: L&D Laceration Description: None Estimated blood loss (mL): 250 Quantitative Blood Loss: 850 Anesthesia Type: Epidural Narrative: Patient arrived on Labor and delivery in active labor. She received 2 doses of IV ampicillin. She received an epidural catheter for pain control. She was AROM for moderate meconium-stained fluid when 9 cm. heart tones category 1 to category 2 throughout labor. When complete and pushing prolonged decreased heart rate to the 90s but resolved with fluid bolus and position change. The patient delivered spontaneously, over an intact perineum. The viable male infant was placed on the maternal abdomen. After delayed cord clamping the cord was clamped, cut, and cord bloods obtained. The placenta delivered spontaneously, intact, with 3 vessels. There were no cervical, vaginal, or perineal tears. Both and mother doing well. Baby weighed 7 lb 11 oz, 3510 g. Total time of rupture membranes 1 hours 51 minutes periods 1st stage of labor 10 hours 29 minutes, 2nd stage of labor 41 minutes, 3rd stage labor 5 minutes. Baby 1: Infant gender: Male Presentation: vertex Position: Right Occiput Anterior Placenta delivery description: Spontaneous Cord Vessel Description: 3 Vessels and Nuchal Cord score (1 min): 7 score (5 min): 9 weight: 7 lb 11 oz Plan for aftercare: Routine care
[2024-03-19] MEDS: WITCH HAZEL/GLYCERIN PADS 1 EACH TOP (13:53)
[2024-03-19] MEDS: LANOLIN OINT 7 GM 1 APPLIC TOP (13:54)
[2024-03-19] MEDS: DERMOPLAST SPRAY 20% 60 ML 1 SPRAY TOP (13:54)
[2024-03-20 05:57] LABS: Hematocrit 32.4 % (36-46); Hemoglobin 11.2 g/dL (12.0-16.0)
[2024-03-20] MEDS: ACETAMINOPHEN 325 MG TABLET 650 MG PO (06:24)
--- NOTE | 2024-03-20 07:13 | PM.OBDS.1 ---
Discharge Providers Provider Date of admission: 03/19/24 03:57 Discharge Date: 03/20/24 Primary care physician: Doctor Joshua MD Consults: 03/19/24 04:34 Consult to Anesthesiology Urgent Comment: Consulting Provider: Anesthesiologist Reason for consultation: Epidural 03/20/24 11:22 Consult to Computer Security Specialist Routine Comment: Discharge provider: Deepa Robins MD Summary Hospital Course Date Patient Seen: 03/20/24 Time Patient Seen: 07:14 Diagnoses: 39 week gestation status post vaginal delivery Hospital Course: Patient arrived on Labor and delivery in active labor. She had a spontaneous vaginal delivery. She is urinating and ambulating well. She is breast-feeding without difficulty. No headaches or scotomata. Tolerating regular diet. Peripartum Data Delivery Method: Natural Vaginal Laceration Description: None Procedures: Spontaneous vaginal delivery complications: none [place] 1: Gender: Male Disposition of : home Discharge Diagnosis (1) Vaginal delivery: Status: Acute (2) Group B streptococcal carriage complicating : Status: Acute Status at Discharge Cognitive/behavioral status at discharge: oriented Functional status at discharge: independent ambulation Overall status at discharge: patient is progressing back to baseline Time Spent with Patient Time attestation: Total time spent providing and/or coordinating discharge services: Time spent: Less than 30 minutes Objective Labs 03/20/24 05:40 Labs: Laboratory Results - last 24 hr 03/20/24 05:40 Hgb 11.2 L Hct 32.4 L Exam Vital Signs (past 8 hours): Blood pressure 127/72, pulse 78, temperature 98.6? Narrative Exam Narrative: Abdomen is soft, nontender. Uterus is firm, U -1, nontender perineum intact. Mild lochia. Extremities without edema and nontender. Discharge Plan Discharge Plan Patient Disposition: Home Discharge orders & Medications Prescriptions: Continued DHA 200 mg capsule PO prenat.vits,dmitry,huw-vbsy-wnile Tablet 1 tab PO DAILY Qty: 90 3RF Rx Instructions: May substitute any brand or type covered by patient's insurance as long as it has 800 mcg of folic acid. acetaminophen 325 mg Tablet 650 mg PO Q6HR PRN (Reason: Pain, Mild (1-3)) Qty: 30 0RF docusate sodium 100 mg Capsule 100 mg PO DAILY Qty: 30 0RF ibuprofen 600 mg Tablet 600 mg PO Q6HR PRN (Reason: Pain, Mild (1-3)) Qty: 30 0RF Follow up/Referrals: Lisa Sweet MD [Physician] - 6 Weeks Doctor Lewis MD [Primary Care Provider] - Diet/Activity/Treatments Diet: Regular Activity: Nothing in vagina for 6 weeks Skin/Wound/Dressing Care Report to your healthcare provider any signs of infection, such as:: chills, fever and increased pain Visit Report/Discharge Packet Stand Alone Forms: Patient Portal/API, Stroke Signs & Symptoms Discharge Data Primary Care Provider: Doctor Joshua Attending Provider: Deepa Robins Admit Date/Time: 03/19/24 03:57
[2024-03-20] MEDS: PRENATAL VIT,CALC/IRON/FOLIC 1 TABLET 1 TAB PO (08:52)
[2024-03-20] MEDS: DOCUSATE 100 MG CAPSULE PO (08:52)
== END 2024-03-20 12:00 | disposition home or self-care (01) | DRG 560 ==
PROVIDERS: Admitting Provider Specialist; Referring Provider Specialist; Visit Provider Specialist
DX: O99.824 Streptococcus B carrier state complicating childbirth (principal); O76 Abnormality in fetal heart rate and rhythm complicating labor and delivery; Z3A.39 39 weeks gestation of pregnancy; Z37.0 Single live birth
CPT/HCPCS: 36415; 59050; 85014; 85018; 85025; 86850; 86900; 86901; G0379; J0290; J2405